=== PATIENT | female | born 1955 | race Caucasian/White ===

== ENCOUNTER → 2016-10-28 | Outpatient (CLI) | payer BC ==
[~2016-10-28] MED LIST: KEFLEX250 M1 PO; MEDROL 4MG. DOSE4 MG PO; NORCO 325 MG-51 TAB PO; PREDNISONE 20MG20 MG PO; SARNA222 ML TP
--- NOTE | 2016-10-28 12:58 | RADIOLOGY REPORT PS360 ---
DEXA DEXA SCAN.-BONE DENSITY STUDY HIPS AND LUMBAR SPINE HISTORY: Postmenopausal female TECHNIQUE: DEXA scan hip and lumbar spine The most complete data summary and color graphic presentation of the today's ( and any prior ) DEXA findings are available in PACS. Definition and treatment guidelines included. COMPARISON: None listed LUMBAR SPINE: L2 vertebral body demonstrates the lowest T score -2.7 with BMD0.87 g/cm sq = osteoporosis at this vertebral Overall mean lumbar L1-L4 T score -2.4 with BMD0.918 g/cm sq .= osteopenia HIPS: Femoral neck density is best predictor of hip fracture risk . Left femoral neck demonstrates the lowest T score -1.3 with BMD0.858 g/cm sq . Right femoral neck T score -1.2 BMD 0.87 Averaging all yields today's overall Hip Mean T score = -0.8 with BMD0.903 g/cm sq .... IMPRESSION 1. LUMBAR SPINE: Overall Osteopenia Osteoporosis at L2 vertebral body with T score -2.7 2. HIPS: Overall low normal density at the hips with overall T score -0.8 However note Osteopenia at femoral neck bilaterally. T score -1.3 left femoral neck; with T score = -1.2 right femoral neck WHO criteria for post-menopausal, Women: Normal: T-score at or above -1 SD Osteopenia: T-score between -1 and -2.5 SD Osteoporosis: T-score at or below -2.5 SD
--- NOTE | 2016-10-31 18:37 | RADIOLOGY REPORT PS360 ---
DIG MAMM-SCREEN [facility] W/CAD CAD Screening ORDERING PHYSICIAN : ROGELIO DIAZ PATIENT AGE: 61 years GENDER: Female COMPARISON: Previous mammograms: January 2014. October 2015, November 2012 INDICATION: Routine screening CT-year-old. Hormone cream. Previous biopsies left breast 2010. Family history. Maternal aunt postmenopausal TECHNIQUE: Standard CC and MLO images were obtained. R2 CAD reviewed. FINDINGS: Moderate breast density bilaterally with scattered fibroglandular elements CAD highlights no areas of concern. The areas of mild asymmetry are similar to the previous studies with no suspicious new findings or areas of concern. No dominant mass nor suspicious calcifications. RIGHT BREAST: Small 6 mm nodular density at the inferior right breast on MLO view is only question is seen on cc view. However I would recommend patient return for spot views and ultrasound right breast to further evaluate. LEFT BREAST: Minimal small areas of nodularity scheduled left breast is similar to previous studies. Follow-up one year adequate on left. IMPRESSION: 1 Right breast: Small 6 mm nodular density inferiorly. Spot views & ultrasound of this area right breast suggested. Most likely benign feature 2. Left breast. Follow-up in one year recommended No new areas of concern BI-RADS CATEGORY: 0_Incomplete: Need additional imaging. RECOMMENDED FOLLOWUP: ADD ADDITIONAL IMAGING (A letter has been sent to the patient regarding results of the study.)
== END ==
LOC: RAD 09:02
DX: Z12.31 Encounter for screening mammogram for malignant neoplasm of breast (principal); Z79.890 Hormone replacement therapy; Z00.00 Encounter for general adult medical examination without abnormal findings; Z13.820 Encounter for screening for osteoporosis
CPT/HCPCS: G0202